=== PATIENT | female | born 1945 | race Two or more races ===

== ENCOUNTER 2021-01-18 06:45 | Day surgery (SDC) | payer OTHER ==
[~2021-01-18] VITALS: Ht 154.9 cm; Wt 48.1 kg
[~2021-01-18 06:45] MED LIST: ADULT LOW DOSE81 M1 PO; CALTRATE PO; ENALAPRIL MALEAT5 MG PO; EVISTA60 MG PO; GLUCOTROL XL5 MG PO; LIPITOR40 M1 PO; PLAVIX75 MG PO; VITAMIN B122500 MCG PO; [UNRECOGNIZED DRUG - OTHER]
[2021-01-18] MEDS ORDERED: COLACE100 MG PO (10:17)
[2021-01-18] MEDS ORDERED: ULTRACET PO (10:17)
== END 2021-01-18 17:50 | disposition home or self-care (01) ==
LOC: CIR.AMB 06:45
PROVIDERS: ATTEND Surgery
DX: K62.0 Anal polyp (principal)